=== PATIENT | male | born 1945 ===

== ENCOUNTER 2019-08-19 17:30 | Outpatient (CLI) | payer OTHER ==
[~2019-08-19 17:30] MED LIST: GABAPENTIN800 M1 PO; PANADOL EXTRA500 MG PO; PREVACID; ZOCOR PO
== END 2019-08-19 19:44 | disposition home or self-care (01) ==
LOC: LAB 17:30
DX: D68.8 Other specified coagulation defects (principal)

== ENCOUNTER 2019-08-25 07:00 | Day surgery (SDC) | payer OTHER | END 2019-08-25 16:35 | disposition home or self-care (01) | LOC: CIR.AMB 07:00 → ADM 09:15 → CIR.AMB 09:15 | DX: K60.3 Anal fistula (principal) ==